=== PATIENT | female | born 1980 | race Caucasian/White ===

== ENCOUNTER → 2016-10-19 | Outpatient (REF) | payer OTHER ==
[2016-10-19 19:30] LABS: THYROID PEROXIDASE ANTIBODY 923.7 U/ML (<60.0)
== END | disposition home or self-care (01) ==
LOC: M LAB REF 16:47
PROVIDERS: ATTEND Nurse Practitioner Family
DX: E06.3 Autoimmune thyroiditis (principal); E04.1 Nontoxic single thyroid nodule; R53.83 Other fatigue

== ENCOUNTER → 2017-06-23 | Outpatient (CLI) | payer OTHER ==
[2017-06-23 18:18] LABS: BASO % 0.6 % (0.0-1.0); EOS # 0.1 K/mm3 (0.0-0.50); EOS % 1.5 % (0.0-3.0); LARGE UNSTAINED CELL # 0.1 K/mm3 (0.0-0.4); LARGE UNSTAINED CELL % 0.7 % (0.0-4.0); LYMPH # 1.3 K/mm3 (1.5-4.5); LYMPH % 16.6 % (24.0-44.0); MEAN CORPUSCULAR HEMOGLOBIN 31.1 pg (27.0-33.0); MEAN CORPUSCULAR HGB CONC 33.8 g/dl (32.0-36.5); MONO # 0.3 K/mm3 (0.0-0.8); NEUTROPHILS # 5.7 K/mm3 (1.8-7.7); NEUTROPHILS % 76.5 % (36.0-66.0); PLATELET COUNT, AUTOMATED 210 k/mm3 (150-450); RED CELL DISTRIBUTION WIDTH 13.3 % (11.5-14.5); WHITE BLOOD COUNT 7.4 K/mm3 (4.0-10.0)
[2017-06-26 11:15] LABS: HBsAg Prenatal NEGATIVE (NEGATIVE)
== END ==
LOC: M LRY 13:19
PROVIDERS: ATTEND Specialist
DX: Z34.81 Encounter for supervision of other normal pregnancy, first trimester (principal)

== ENCOUNTER → 2017-09-01 | Outpatient (CLI) | payer OTHER ==
--- NOTE | 2017-09-01 14:25 | REP ---
Clinical: Anatomical evaluation. Comparison: None . Findings: Examination demonstrates a single live intrauterine in cephalic presentation. motion is identified by technologist. Placenta is noted anteriorly and grade zero without evidence for placenta previa or abruption. Amniotic fluid volume is normal. Cervix measures 3.4 cm in length and appears closed. No evidence for nuchal cord. Gestational age by LMP 18 weeks 6 days with BATOOL 01/27/2018 . Gestational age by current measurements 19 weeks 4 days with BATOOL 01/22/2018 . FHR equals 144 beats per minute. BPD 4.5 cm 19 weeks 5 days HC 16.8 cm 19 weeks 3 days AC 14.9 cm 20 weeks 1 day FL 3.2 cm 20 weeks 0 days HL 3.0 cm 19 weeks 5 days HC/AC ratio 1.13 Estimated weight 327 grams ( 92nd percentile). Anatomical assessment demonstrates normal structures including cranium, choroid plexus, cavum, cerebellum/posterior fossa, facial features, lungs, four-chamber heart/ventricular outflow tracts, diaphragm, stomach, cord insertion/three-vessel cord, kidneys/bladder, and extremities. Small bilateral choroid plexus cysts are noted. Incomplete evaluation of the spine. Impression: Single live intrauterine in cephalic presentation demonstrating appropriate interval growth. Cord plexus cysts and incomplete evaluation of the spine may warrant reevaluation and follow-up. Signed by Tani Alcala MD 09/01/2017 02:17 P
== END ==
LOC: M SMT 13:05
PROVIDERS: ATTEND Specialist
DX: Z34.82 Encounter for supervision of other normal pregnancy, second trimester (principal)

== ENCOUNTER → 2017-10-02 | Outpatient (CLI) | payer OTHER ==
--- NOTE | 2017-10-03 03:37 | REP ---
Clinical: Anatomical evaluation. Comparison: 09/01/2017 . Findings: Examination demonstrates a single live intrauterine in cephalic presentation. motion is identified by technologist. Placenta is noted anteriorly and grade one without evidence for placenta previa or abruption. Amniotic fluid volume is normal. Cervix measures 3.4 cm in length and appears closed. No evidence for nuchal cord. Gestational age by LMP 23 weeks 2 days with BATOOL 01/27/2018 . Gestational age by current measurements 24 weeks 1 day with BATOOL 01/21/2018 . FHR equals 153 beats per minute. Estimated weight 682 grams ( 76 percentile). Anatomical assessment demonstrates normal structures including cranium, choroid plexus, cavum, cerebellum/posterior fossa, facial features, lungs, four-chamber heart/ventricular outflow tracts, diaphragm, stomach, cord insertion/three-vessel cord, kidneys/bladder, spine, and extremities. Impression: Single live intrauterine in cephalic presentation demonstrating appropriate interval growth. Anatomical assessment is complete and normal. No gross abnormalities are identified. Signed by Tani Alcala MD 10/03/2017 12:28 A
== END ==
LOC: M SMT 13:46
PROVIDERS: ATTEND Advanced Practice Midwife
DX: Z36.2 Encounter for other antenatal screening follow-up (principal)

== ENCOUNTER → 2017-10-27 | Outpatient (CLI) | payer OTHER ==
[2017-10-27 13:50] LABS: BASO # 0.1 10^3/uL (0.0-0.2); BASO % 0.8 % (0.0-1.0); EOS # 0.1 10^3/uL (0.0-0.50); EOS % 1.2 % (0.0-3.0); HEMATOCRIT 37.6 % (36.0-47.0); HEMOGLOBIN 12.7 g/dl (12.0-16.0); IMMATURE GRANULOCYTE # 0.4 10^3/uL (0-0); IMMATURE GRANULOCYTE % 4.1 % (0-0); LYMPH # 1.3 10^3/uL (1.5-4.5); LYMPH % 15.1 % (24.0-44.0); MEAN CORPUSCULAR HEMOGLOBIN 31.8 pg (27.0-33.0); MEAN CORPUSCULAR HGB CONC 33.8 g/dl (32.0-36.5); MEAN CORPUSCULAR VOLUME 94.2 fl (80.0-96.0); MONO # 0.5 10^3/uL (0.0-0.8); MONO % 6.2 % (0.0-5.0); NEUTROPHILS # 6.3 10^3/uL (1.8-7.7); NEUTROPHILS % 72.6 % (36.0-66.0); PLATELET COUNT, AUTOMATED 193 10^3/uL (150-450); RED BLOOD COUNT 3.99 10^6/uL (4.00-5.40); RED CELL DISTRIBUTION WIDTH 13.7 % (11.5-14.5)
[2017-10-30 10:35] LABS: GLUCOSE CHALLENGE TEST 1 HOUR 109 MG/DL (LESS THAN 140)
[2017-10-30 10:35] LABS: WHITE BLOOD COUNT 8.6 10^3/uL (4.0-10.0)
== END ==
LOC: M SMT 09:07
DX: Z34.83 Encounter for supervision of other normal pregnancy, third trimester (principal)
CPT/HCPCS: 82950

== ENCOUNTER → 2018-01-02 | Outpatient (REF) | payer OTHER | LOC: M LAB REF 13:15 | DX: Z34.83 Encounter for supervision of other normal pregnancy, third trimester (principal) ==

== ENCOUNTER → 2018-01-03 | Outpatient (CLI) | payer OTHER | LOC: M SMT 11:19 | DX: O36.5933 Maternal care for other known or suspected poor fetal growth, third trimester, fetus 3 (principal); Z3A.36 36 weeks gestation of pregnancy | CPT/HCPCS: 76816 ==

== ENCOUNTER → 2018-09-14 | Outpatient (REF) | payer OTHER ==
[2018-09-19 00:07] LABS: HPV HYBRID CAPTURE II Negative (Negative)
== END ==
LOC: M LAB REF 18:45
DX: Z12.4 Encounter for screening for malignant neoplasm of cervix (principal)
CPT/HCPCS: G0123

== ENCOUNTER → 2021-02-01 | Outpatient (REF) | payer OTHER ==
[~2021-02-01] MED LIST: COLA100C5 PO; IBUP-1114 PO; MAPA500T2 PO; PRENTAB9 PO
[2021-02-01 19:41] LABS: FREE T4 0.98 NG/DL (0.76-1.46); THYROID STIMULATING HORMONE 0.908 uIU/ML (0.358-3.740)
== END ==
LOC: M PLALAB 16:51
PROVIDERS: ATTEND Nurse Practitioner Family
DX: E06.3 Autoimmune thyroiditis (principal)

== ENCOUNTER → 2022-01-05 | Outpatient (REF) | payer OTHER | LOC: M SFHCLERA 11:10 | PROVIDERS: ATTEND Student in an Organized Health Care Education/Training Program | DX: R87.619 Unspecified abnormal cytological findings in specimens from cervix uteri (principal); Z12.4 Encounter for screening for malignant neoplasm of cervix | CPT/HCPCS: 87624; G0123; G0463 ==

== ENCOUNTER → 2022-02-18 | Outpatient (REF) | payer OTHER | LOC: M SFHCLERA 11:41 | PROVIDERS: ATTEND Student in an Organized Health Care Education/Training Program | DX: Z12.4 Encounter for screening for malignant neoplasm of cervix (principal) ==

== ENCOUNTER → 2022-02-18 | Outpatient (CLI) | payer OTHER | LOC: M WHC 15:46 | PROVIDERS: ATTEND Student in an Organized Health Care Education/Training Program | DX: Z12.31 Encounter for screening mammogram for malignant neoplasm of breast (principal); Z12.4 Encounter for screening for malignant neoplasm of cervix | CPT/HCPCS: 77063; 77067; G0123 ==

== ENCOUNTER → 2022-02-23 | Outpatient (CLI) | payer OTHER ==
[2022-02-23 14:41] LABS: FREE T4 1.01 NG/DL (0.76-1.46); THYROID STIMULATING HORMONE 0.557 uIU/ML (0.358-3.740)
== END ==
LOC: M PLALAB 09:27
PROVIDERS: ATTEND Student in an Organized Health Care Education/Training Program
DX: E06.3 Autoimmune thyroiditis (principal)